=== PATIENT | male | born 1950 | race Caucasian/White ===

== ENCOUNTER 2020-04-26 00:07 | Inpatient (IN) | payer MEDICARE, OTHER ==
[2020-04-26] VITALS (8 sets, daily range): BP systolic 152–187; BP diastolic 71–103; PULSE 96–113; TEMP 97.7–98.8
[~2020-04-26] VITALS: Ht 185.4 cm; Wt 95.0 kg
[2020-04-26 00:20] LABS: BASO % 0.3 % (0.0-2.0); EOS # 0.1 (0.0-0.7); EOS % 0.6 % (0-4.0); GRAN # 7.9 (1.4-6.5); GRAN % 80.6 % (42.2-75.2); HEMATOCRIT 46.6 % (42.0-52.0); HEMOGLOBIN 16.7 g/dl (13.5-18.0); LYMPH # 1.1 (1.2-3.4); MEAN CELL VOLUME 89 fl (80.0-100.0); MEAN CORPUSCULAR HEMOGLOBIN 32 pg (27.0-31.0); MEAN CORPUSCULAR HGB CONC 36 g/dl (33.0-37.0); MEAN PLATELET VOLUME 10.5 fl (7.4-10.4); MONO # 0.7 (0.1-0.6); MONO % 6.9 % (1.7-9.3); PLATELET COUNT 195 K/mm3 (130-400); RED BLOOD COUNT 5.24 M/mm3 (4.20-5.60); REDCELL DISTRIBUTION WIDTH-CV 11.5 % (11.5-14.5)
[2020-04-26 00:28] LABS: ALBUMIN 4.9 gm/dL (3.5-5.0); BILIRUBIN,TOTAL 2.3 mg/dL (0.0-1.0); CALCIUM 9.4 mg/dL (8.4-10.2); CREATININE, serum 0.99 (0.66-1.25); POTASSIUM 4.1 mmol/L (3.4-5.0); TOTAL PROTEIN 7.6 gm/dL (6.4-8.2)
[2020-04-26 01:03] LABS: TROPONIN-I 0.058 ng/mL (0.000-0.035)
[2020-04-26] MEDS ORDERED: NORMODYNE200 MG PO (02:36)
[2020-04-26] MEDS ORDERED: HYTRIN 5MG C5 MG/CAP PO (02:37)
[2020-04-26 02:40] LABS: ARTERIAL BLD GAS O2 SATURATION 98.1 % (92-100); ARTERIAL BLD GAS TCO2 CT 17.6; ARTERIAL BLOOD GAS BASE EXCESS -5.3 (-2-2); ARTERIAL BLOOD GAS HCO3 16.8 meq/L (22-26); ARTERIAL BLOOD GAS PCO2 25.9 mmHg (35-45); ARTERIAL BLOOD GAS PO2 100.8 mmHg (80-100); ARTERIAL BLOOD GAS pH 7.43 (7.35-7.45)
--- NOTE | 2020-04-26 03:30 | NUR ---
Patient to medical room 313 at this time. He is able to ambulate steadily from ED stretcher to bed. He alert and energetic but is only oriented to self; He does state at times that he is aware of increased confusion. He is unable to state the year, president, or situation. He knows his 's name and knows his home address. Lung sounds are clear, HR is irregular with normal rate, no edema is noted, patient has no complaints of pain. Patient is a very poor historian, as he has multiple answers for the same question. He is unaware of the names/dosages of his home medications but states his PCP in [place] is Dr. Aaron Stuart. Attempted to contact family via cell phone with no answer. Patient is currently resting in bed with call light in reach and bed alarm set. Will continue to monitor.
[2020-04-26 05:02] LABS: CHOLESTEROL RISK RATIO 4.6
[2020-04-26 07:07] LABS: BASO % 0.3 % (0.0-2.0); EOS % 0.2 % (0-4.0); GRAN # 8.1 (1.4-6.5); GRAN % 78.5 % (42.2-75.2); HEMATOCRIT 45.9 % (42.0-52.0); HEMOGLOBIN 16.2 g/dl (13.5-18.0); LYMPH # 1.3 (1.2-3.4); LYMPH % 12.6 % (20.0-51.0); MEAN CELL VOLUME 90 fl (80.0-100.0); MEAN CORPUSCULAR HEMOGLOBIN 32 pg (27.0-31.0); MEAN CORPUSCULAR HGB CONC 35 g/dl (33.0-37.0); MEAN PLATELET VOLUME 10.5 fl (7.4-10.4); MONO # 0.8 (0.1-0.6); MONO % 7.6 % (1.7-9.3); PLATELET COUNT 201 K/mm3 (130-400); REDCELL DISTRIBUTION WIDTH-CV 11.7 % (11.5-14.5)
[2020-04-26 07:20] LABS: CALCIUM 9.4 mg/dL (8.4-10.2); CREATININE, serum 0.98 (0.66-1.25); POTASSIUM 3.9 mmol/L (3.4-5.0)
[2020-04-26 07:35] LABS: TROPONIN-I 6 HR POST INITIAL 0.074 ng/mL (0.000-0.034)
--- NOTE | 2020-04-26 07:52 | NUR ---
TYLER Melendez notified of pt increased troponin of 0.074, patient has had no complaints of chest pain or SOB at this time. Will continue to monitor. Call light is in reach.
--- NOTE | 2020-04-26 08:25 | NUR ---
Assessment complete. Patient awake and alert at this time, just finished his consultation with Dr. Wesley. PAtient is plesant and talks a lot but conversation is sometimes confused. PAtient has no complaints of pain or discomfort. Fall precautions have been implemented due to patients confusion and unsteady gait on assessment with Dr. Wesley. IV site is CD&I, infusing with no issues. Bed alarm is set. Continuing to monitor. Call light is in reach.
[2020-04-26] MEDS ORDERED: ATACAND32 MG PO (11:52)
[2020-04-26] MEDS ORDERED: AMARYL4 MG PO ×2 (11:53)
[2020-04-26] MEDS ORDERED: HYGROTON 2525 MG/TAB (11:54)
[2020-04-26] MEDS ORDERED: CRESTOR5 MG PO (11:54)
--- NOTE | 2020-04-26 15:30 | NUR ---
[facility] Director contacted patient's , Kamila (ph#[phone]) to discuss discharge planning as patient has dementia and is a poor historian. Patient lives in [place], [place] but presented to the ED after being found wandering near a gas station in [place] which is about two hours from home. Patient was found by the police and he had left his cell phone at home. Patient's , Kamila confirmed she and patient live in [place]. Kamila advised that their son, Kalpesh (ph#[phone]) lives nearby in [place]. Kamila reports that patient has had memory issues for quite some time but that things have been worse over the last few months. Kamila advised that patient is fine when he's at home but struggles when he drives. Kamila states patient frequently gets lost while driving but he always makes his way back home. Kamila states this is the first time patient did not come home. Kamila states she believes patient was trying to drive to his dentist office to reschedule an appointment he recently missed (due to getting lost driving) and he must have just driven until he ran out of gas. Kamila states patient is very private about his health and for this reason, she has never met patient's primary care physician Dr. Aaron Stuart. Kamila reports patient uses [facility] to have his medications mailed but that he has them mailed to the post office instead of their home. Kamila states patient does this because he worries about his medications being exposed to the weather. Per Kamila, patient does not use any DME and is independent with [facility]. PT has been ordered for patient. Patient does not have Advance Directives in EMR and Kamila confirms that this is something they have never done. Kamila would like an updated from the Hospitalist as she returned back to [place] last night. Kamila provided their physical address, [address] [facility] [address]. Kamila reports the plan is for patient to return home with her upon discharge. JOSE contacted Dena at Dr. Stuart's office and was advised patient has not been seen since June of 2019. Dena requested updates to be faxed to [phone]. SW made report to Adult Protective Services (intake #[id number]).
--- NOTE | 2020-04-26 16:32 | NUR ---
Patient has had a good day. He is very talkative while conversating but conversation gets confused sometimes, especially when related to things he does not remember. He has remained pleasant and has taken medications well. He is anxious to leave but has come to terms that he is staying tonight. He tells stories related to small pains that he has but they do not make sense and he does not bring up the same pain twice. Continuing to monitor. Fall precautions are in place, Call light is in reach. Bed alarm is set.
[2020-04-26 17:16] LABS: FOLATE (FOLIC ACID) 14.4 ng/mL (7.0-31.4)
--- NOTE | 2020-04-26 20:35 | NUR ---
Patient assessed at this time. Alert and oriented to self. Disoriented on time, place, and situation. Not able to redirect. Very forgetful. Denies having pain and discomfort. Peripheral IV to left AC with fluids running per orders. Site without redness, warmth, swelling, and pain. Denies SOB and dyspnea. LS CTA. Respirations even and unlabored. HRR. Telemetry in place: tachycardia with exertion. Capillary refill less than 3 seconds. Non-tenting skin turgor. BSAx4. Abdomen soft and non-tender. No edema. Voices no questions, needs, or concerns at this time. Resting in bed with call light within reach. High fall risk precautions in place.
[2020-04-27 04:50] VITALS: BP 159/84; PULSE 101; TEMP 97.6
--- NOTE | 2020-04-27 05:51 | NUR ---
Patient has been awake on and off this shift. Continues to be very confused and not able to redirect patient. Patient did pull out IV to left AC. New IV started to right forearm. Resting in bed with call light within reach. High fall risk precautions in place.
[2020-04-27 06:34] LABS: BASO % 0.5 % (0.0-2.0); EOS # 0.2 (0.0-0.7); EOS % 1.9 % (0-4.0); GRAN # 5.9 (1.4-6.5); GRAN % 66.4 % (42.2-75.2); HEMATOCRIT 42.7 % (42.0-52.0); HEMOGLOBIN 15.5 g/dl (13.5-18.0); LYMPH # 1.8 (1.2-3.4); LYMPH % 20.5 % (20.0-51.0); MEAN CELL VOLUME 89 fl (80.0-100.0); MEAN CORPUSCULAR HEMOGLOBIN 32 pg (27.0-31.0); MEAN CORPUSCULAR HGB CONC 36 g/dl (33.0-37.0); MEAN PLATELET VOLUME 10.3 fl (7.4-10.4); MONO # 0.9 (0.1-0.6); PLATELET COUNT 181 K/mm3 (130-400); REDCELL DISTRIBUTION WIDTH-CV 11.8 % (11.5-14.5)
[2020-04-27 06:50] LABS: CALCIUM 8.9 mg/dL (8.4-10.2); CREATININE, serum 0.96 (0.66-1.25); POTASSIUM 3.4 mmol/L (3.4-5.0)
[2020-04-27 07:09] LABS: TROPONIN-I 0.057 ng/mL (0.000-0.035)
--- NOTE | 2020-04-27 08:09 | NUR ---
Assessment completed, alert/ but very disoriented, he is cooperative and can follow commands but is very forgetfull, denies pain or discomfort, vital signs stable and B/P improving with medications, heart RRR/ lungs CTA, he refuses wanting any breakfast, I have helped him up to the bathroom and he is just a stand by assist, patient keeps repeating that "this is very bizarre and he dose not belong here", Psychiatry here to see him this morning and stated this appears to be dementia and they have no new recs at this time, will continue to monitor the patient, bed alarm and fall p/c in place
[2020-04-27 08:29] VITALS: BP 135/88; PULSE 123; TEMP 98.4
[2020-04-27 11:43] VITALS: BP 131/59; PULSE 99; TEMP 98
--- NOTE | 2020-04-27 13:48 | NUR ---
Field Laborer faxed records to patient's primary care office, per their request.
[2020-04-27 15:13] VITALS: BP 148/54; PULSE 109; TEMP 98
[2020-04-27 20:03] VITALS: BP 124/62; PULSE 85; TEMP 97.5
--- NOTE | 2020-04-27 20:50 | NUR ---
Patient assessed at this time. Alert and oriented to self only. Denies having pain and discomfort. Peripheral IV to right wrist with fluids running per orders. Site without redness, warmth, swelling, and pain. Denies SOB and dyspnea. LS CTA. Respirations even and unlabored. HRR. Telemetry in place. Capillary refill less than 3 seconds. Non-tenting skin turgor. BSAx4. Abdomen soft and non-tender. No edema. Voices no questions, needs, or concerns at this time. Resting in bed with call light within reach. High fall risk precautions in place.
[2020-04-27 23:46] VITALS: BP 130/58; PULSE 98; TEMP 97.8
[2020-04-28 04:45] VITALS: BP 154/79; PULSE 72; TEMP 97.6
--- NOTE | 2020-04-28 05:59 | NUR ---
Patient has been resting in bed with call light within reach. Denies having pain and discomfort this shift. More easily redirected this shift compared to previous night. Voices no questions, needs, or concerns at this time. Continues on IV fluids per orders.
[2020-04-28 06:53] LABS: BASO % 0.5 % (0.0-2.0); EOS # 0.2 (0.0-0.7); EOS % 2.7 % (0-4.0); GRAN # 3.8 (1.4-6.5); GRAN % 63.3 % (42.2-75.2); HEMATOCRIT 39.3 % (42.0-52.0); HEMOGLOBIN 14.2 g/dl (13.5-18.0); LYMPH # 1.4 (1.2-3.4); LYMPH % 23.9 % (20.0-51.0); MEAN CELL VOLUME 89 fl (80.0-100.0); MEAN CORPUSCULAR HEMOGLOBIN 32 pg (27.0-31.0); MEAN CORPUSCULAR HGB CONC 36 g/dl (33.0-37.0); MEAN PLATELET VOLUME 10.6 fl (7.4-10.4); MONO # 0.5 (0.1-0.6); MONO % 8.9 % (1.7-9.3); PLATELET COUNT 154 K/mm3 (130-400); REDCELL DISTRIBUTION WIDTH-CV 11.8 % (11.5-14.5)
[2020-04-28 06:55] LABS: CALCIUM 8.7 mg/dL (8.4-10.2); CREATININE, serum 1.01 (0.66-1.25); POTASSIUM 3.3 mmol/L (3.4-5.0)
[2020-04-28 07:26] VITALS: BP 160/81; PULSE 66; TEMP 97.8
[2020-04-28] MEDS ORDERED: LEVEMIR FLEX100 U/ML SQ (09:37)
[2020-04-28] MEDS ORDERED: K-DUR 10 MEQ T10 MEQ PO (09:37)
[2020-04-28] MEDS ORDERED: ASPIRIN E.C. 8181 MG PO (09:37)
[2020-04-28] MEDS ORDERED: NOVOLOG FLEX100 U/ML SQ (09:38)
[2020-04-28] MEDS ORDERED: FREESTYLE PREC1 EAC5 MC (09:42)
[2020-04-28] MEDS ORDERED: GLUCOSE TEST ST1 DEV MC (09:43)
[2020-04-28] MEDS ORDERED: TRUE COMFORT P1 EAC1 MC (09:43)
[2020-04-28] MEDS ORDERED: LANCETS MC (09:44)
[2020-04-28] MEDS ORDERED: GLUCOPHAGE1000 MG PO (09:44)
[2020-04-28] MEDS ORDERED: NORVASC 10MG10 MG PO (09:45)
--- NOTE | 2020-04-28 10:07 | NUR ---
Assessment completed, alert/ partially oriented but very forgetful, denies pain or discomfort, overall mental /cognitive status appears somewhat improved from time of admission according to reports, his medical conditions are stable and plan is for discharge back home to with and son, hosptialist and social work have been in contact with via telephone and plan of are discussed, patient has ate breakfast and taken morning medications, at this time he is pleasantly confused and calm in his room sitting on the bench, will continue to monitor
[2020-04-28 11:31] VITALS: BP 107/41; PULSE 65; TEMP 98.2
--- NOTE | 2020-04-28 15:31 | NUR ---
Patient is ready to be discharged today. Carpentry Teacher contacted patient's , Kamila who will picker tender helper patient later today. Kamila advised their son will be with her to picker tender helper patient. JOSE discussed home health services with Kamila who is agreeable to this. Kamila asked if Hospitalist could include "no driving" in patient's discharge orders. JOSE relayed this request to Hospitalist. Kamila also asked for DPOA-HC form and SW provided. JOSE contacted [facility] out of [place] and faxed referral and discharge orders. Yasmin at [facility] advised they can accept patient and will contact patient's to set up a visit for Friday.
--- NOTE | 2020-04-28 15:37 | NUR ---
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
== END 2020-04-28 15:42 | disposition home health service (06) | DRG 71 ==
LOC: COL.ER 00:07 → MEDICAL 01:21
PROVIDERS: Family Medicine; Psychiatry & Neurology Neurology; Student in an Organized Health Care Education/Training Program; ADMIT Hospitalist
DX: G93.40 Encephalopathy, unspecified (principal); F05 Delirium due to known physiological condition; E87.2 Acidosis; E87.1 Hypo-osmolality and hyponatremia; I16.0 Hypertensive urgency; I51.89 Other ill-defined heart diseases; E11.65 Type 2 diabetes mellitus with hyperglycemia; F03.90 Unspecified dementia, unspecified severity, without behavioral disturbance, psychotic disturbance, mood disturbance, and anxiety; E87.6 Hypokalemia; I10 Essential (primary) hypertension; R41.9 Unspecified symptoms and signs involving cognitive functions and awareness; E78.5 Hyperlipidemia, unspecified; R00.0 Tachycardia, unspecified; R79.89 Other specified abnormal findings of blood chemistry; E80.7 Disorder of bilirubin metabolism, unspecified; R26.9 Unspecified abnormalities of gait and mobility; Z85.828 Personal history of other malignant neoplasm of skin
CPT/HCPCS: 99222-AI; 99233-AI; A9585; J0360; J1650; J1815; J7030